=== PATIENT | male | born 2000 | race African-American/Black ===

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

== ENCOUNTER 2023-02-14 11:02 | Outpatient (REF) | payer MEDICAID, SELFPAY ==
[2023-02-14 11:52] LABS: Influenza A PCR NEGATIVE (Negative); Influenza B PCR NEGATIVE (Negative); Resp Syncy Virus RNA Qual PCR NEGATIVE (Negative); SARS COV2 PCR INHOUSE NEGATIVE (Negative)
== END 2023-02-14 11:03 | disposition home or self-care (01) ==
LOC: HO.HHCL 11:02
PROVIDERS: Visit Provider Emergency Medicine
DX: Z20.822 Contact with and (suspected) exposure to COVID-19 (principal); R05.1 Acute cough
CPT/HCPCS: 0241U